=== PATIENT | female | born 1975 | race Caucasian/White ===

== ENCOUNTER → 2016-08-19 | Outpatient (CLI) | payer MEDICARE, MEDICAID ==
[~2016-08-19] MED LIST: ACET-2321 PO; FLUC150T PO; HYDR-4246 PO; HYOS-7 SL; IBUP-1724 PO; PHEN95TA25 PO; SULF1TAB3 PO
--- NOTE | 2016-08-19 13:08 | DI ---
EXAM: KUB COMPARISON: 01/07/2015. HISTORY: ITS.REASON: N20.0 LT KIDNEY STONE; Z96.0 URETERAL STENT . FINDINGS: L ureteral stent is in place with the proximal pigtail at the left renal pelvis and the distal pigtail at the left bladder. There are at least four calcifications at the left pelvis likely representing phleboliths. Moderate amount of stool seen throughout the colon. A 2 mm calcific density is seen projecting over the upper pole of the right kidney. There may be a 4 mm calcific density projecting over the left renal pelvis but is equivocal. Overlying stool obscures the left kidney. Surgical clips are seen in the right upper quadrant likely from prior cholecystectomy. Tubular lucency is seen in the right lower pelvis likely representing a tampon. IMPRESSION: 1. Left renal stent in place. 2. Right renal calculi again noted. 3. Possible left renal calculus. 4. Small to moderate amount of stool and air seen throughout the colon and otherwise unremarkable bowel gas pattern. LOCATION OF DICTATION: [facility] [place]
== END ==
LOC: IMA 12:39
PROVIDERS: ATTEND Specialist
DX: N20.0 Calculus of kidney (principal); Z96.0 Presence of urogenital implants